=== PATIENT | male | born 1970 | race Caucasian/White ===

== ENCOUNTER 2016-05-03 13:04 | Inpatient (IN) | payer OTHER ==
[2016-05-03 17:19] VITALS: BMI 25.0
--- NOTE | 2016-05-03 18:11 | HP ---
Admission ROS [facility] Chief Complaint: I WANT TO GO TO REHAB Allergies/Adverse Reactions: Allergies Allergy/AdvReac Type Severity Reaction Status Date / Time No Known Allergies Allergy Verified 05/03/16 18:06 History of Present Illness: 46 YEARS OLD MALE WITH LONG HISTORY OF OPIATE DEPENDENCE, DENIES MEDICAL DENIES MENTAL ILLNESS LONGEST SOBRIETY IS 3 MONTHS IS ADMITTED TO REHAB Exam Limitations: No Limitations - Ebola screening Have you traveled outside of the country in the last 21 days: No Have you had contact with anyone from an Ebola affected area: No Have you been sick,other than usual withdrawal symptoms: No Do you have a fever: No - Review of Systems Constitutional: Loss of Appetite, Unexplained wgt Loss EENT: reports: No Symptoms Reported Respiratory: reports: No Symptoms reported Cardiac: reports: No Symptoms Reported GI: reports: Poor Fluid Intake : reports: No Symptoms Reported Musculoskeletal: reports: Joint Pain (KNEES ELBOWS ARTHRITIS) Integumentary: reports: No Symptoms Reported Neuro: reports: No Symptoms reported Endocrine: reports: No Symptoms Reported Hematology: reports: No Symptoms Reported Psychiatric: reports: Judgement Intact, Mood/Affect Appropiate, Orientated x3 Other Systems: Reviewed and Negative Patient History - Patient Medical History Hx Anemia: No Hx Asthma: No Hx Chronic Obstructive Pulmonary Disease (COPD): No Hx Cancer: No Hx Cardiac Disorders: No Hx Congestive Heart Failure: No Hx Hypertension: Yes Hx Hypercholesterolemia: No Hx Pacemaker: No HX Cerebrovascular Accident: No Hx Seizures: No Hx Dementia: No Hx Diabetes: No Hx Gastrointestinal Disorders: No Hx Liver Disease: No Hx Genitourinary Disorders: No Hx Sexually Transmitted Disorders: No Hx Renal Disease (ESRD): No Hx Thyroid Disease: No Hx Hepatitis C: No Hx Depression: No Hx Suicide Attempt: No Hx Bipolar Disorder: No Hx Schizophrenia: No - Patient Surgical History Past Surgical History: No - PPD History Previous Implant?: Yes Documented Results: Negative w/o proof Implanted On Prior [facility] Admission?: No PPD to be Administered?: Yes - Smoking Cessation Smoking history: Never smoked Have you smoked in the past 12 months: No Hx Chewing Tobacco Use: No Initiated information on smoking cessation: No - Substance & Tx. History Hx Alcohol Use: No Hx Substance Use: Yes Substance Use Type: Heroin Hx Substance Use Treatment: Yes - Substances Abused Heroin Route: Inhalation Frequency: Daily Amount used: 10 BAGS Age of first use: 39 Date of Last Use: 04/26/16 Family Disease History - Family Disease History Family History: Denies Admission Physical Exam [facility] - Vital Signs Vital Signs: Vital Signs - 24 hr 05/03/16 17:18 Temperature 98 F Pulse Rate 63 Respiratory 20 Rate Blood Pressure 118/67 - Physical General Appearance: Yes: No Apparent Distress, Appropriately Dressed, Thin HEENTM: Yes: Hearing grossly Normal, Normal ENT Inspection, Normocephalic, Normal Voice Respiratory: Yes: Chest Non-Tender, Lungs Clear, Normal Breath Sounds, No Respiratory Distress, No Accessory Muscle Use Neck: Yes: Supple, Trachea in good position Breast: Yes: Breasts Symetrical Cardiology: Yes: Regular Rhythm, Regular Rate, S1, S2 Abdominal: Yes: Non Tender, Soft Genitourinary: Yes: Within Normal Limits Back: Yes: Normal Inspection Musculoskeletal: Yes: full range of Motion, Gait Steady, Back pain Extremities: Yes: Normal Inspection, Normal Range of Motion, Non-Tender Neurological: Yes: Fully Oriented, Alert, Motor Strength 5/5, Normal Mood/Affect , Normal Response Integumentary: Yes: Normal Color, Warm Lymphatic: Yes: Within Normal Limits - Diagnostic (1) Opioid dependence with withdrawal Current Visit: Yes Status: Acute (2) Hypertension Current Visit: Yes Status: Acute Qualifiers: Hypertension type: essential hypertension Qualified Code(s): I10 - Essential (primary) hypertension (3) Weight loss Current Visit: Yes Status: Acute Cleared for Admission [facility] - Detox or Rehab [facility] Level of Care: Observation Bed Claeared for Rehab Admission: Yes [facility] Breath Alcohol Content Breath Alcohol Content: 0 Urine Drug Screen - Results Drug Screen Negative: Yes
[2016-05-03] MEDS ORDERED: MAGNESIUM HYDROX 2400MG/30ML ORAL SUSPENSION 30 ML CUP PO PRN (18:13)
[2016-05-03] MEDS ORDERED: diphenhydrAMINE HCL 50 MG CAPSULE PO PRN (18:13)
[2016-05-03] MEDS ORDERED: guaiFENesin/D-METHORPHAN HB 10 ML UNIT-DOSE CUPS PO PRN (18:13)
[2016-05-03] MEDS ORDERED: ACETAMINOPHEN 325 MG TABLET (FP) PO PRN (18:13)
[2016-05-03] MEDS ORDERED: IBUPROFEN 400 MG TABLET (FP) PO PRN (18:13)
[2016-05-03] MEDS ORDERED: hydrOXYzine PAMOATE 50 MG CAPSULE (FP) PO PRN (18:13)
[2016-05-03] MEDS ORDERED: MAGNESIUM CITRATE 300 ML BOTTLE PO PRN (18:13)
[2016-05-03] MEDS ORDERED: P-EPHED 60MG/TRIPROLIDI 2.5MG TABLET PO PRN (18:13)
[2016-05-03] MEDS ORDERED: MENTHOL/PHENOL 1 EACH UD MM PRN (18:13)
[2016-05-03] MEDS ORDERED: LOPERAMIDE HCL 2 MG CAPSULE PO PRN (18:13)
[2016-05-03] MEDS ORDERED: MAG HYDROX/AL HYDROX/SIMETH 30 ML UNIT-DOSE CUP PO PRN (18:13)
[2016-05-03] MEDS ORDERED: TUBERCULIN PPD 5 TU/0.1ML VIAL ID ONE (19:34)
[2016-05-03] MEDS: THIAMINE HCL 100 MG TABLET (FP) PO SCH (21:03)
--- NOTE | 2016-05-04 06:49 | HP ---
Psychiatrist Admission - Data Date of interview: 05/04/16 Admission source: [facility] Identifying data: This is the first [facility] dmission for this 46 years old single male, father of a 13 years old daughter, barlow by trade, domiciled sharing an apartment with older brother Medical History: Significant for history of HTN Psychiatric History: Patient denied any psychiatric history upon admission with the nursing unit; however, he now reports that his first psychiatric contact was at age 13 for aggressive behavior and inattententiveness in class. He claims he was hearing voices at the time and may have been prescribed Seroquel following a possible diagnosis of schizophrenia. He reports he stopped taking Seroquel at age 19 because he did not like the way it made him feel and he stopped hearing voices thereafter. He denies psychiatric hospitalization and suicidal thoughts. Physical/Sexual Abuse/Trauma History: Denies history of physical, sexual abuse as well as DV relationship Additional Comment: Reports history of 3-5 previous arrests including 2 felony convictions. Denies being on probation/parole at present Vital Signs: Vital Signs - 24 hr 05/03/16 05/04/16 05/04/16 17:18 00:30 03:30 Temperature 98 F Pulse Rate 63 Respiratory 20 18 18 Rate Blood Pressure 118/67 Allergies/Adverse Reactions: Allergies Allergy/AdvReac Type Severity Reaction Status Date / Time No Known Allergies Allergy Verified 05/03/16 18:06 Date of last physical exam: 05/03/16 Concur with the findings of this exam: Yes - Substance Abuse/Tx History Hx Alcohol Use: No Hx Substance Use: Yes Substance Use Type: Alcohol (Started drinking at age 43, consumes liquor 2 pints on weekend. last drink on 04/26/16), Heroin (Started usingheroin at age 39 , consumes 10 bags daily. Last used on 04/26/16) Hx Substance Use Treatment: Yes (2 previous inpt detox both @ [facility]. First inpt rehab) - Admission Criteria Previous failed treatment: No Poor recovery environment: Yes Comorbidities: Yes Lacks judgement: Yes Mental Status Exam - Mental Status Exam Alert and Oriented to: Time, Place, Person Cognitive Function: Fair Patient Appearance: Well Groomed (wearing a beige) Mood: Anxious (mildly) Affect: Appropriate Patient Behavior: Cooperative Speech Pattern: Clear Voice Loudness: Normal Thought Process: Intact Thought Disorder: Not Present Hallucinations: Denies Suicidal Ideation: Denies Homicidal Ideation: Denies Insight/Judgement: Fair Sleep: Poorly Appetite: Poor Muscle strength/Tone: Normal Gait/Station: Normal Psychiatric Findings - Problem List ([place] 1, 2,3) (1) Opioid dependence with withdrawal Current Visit: Yes Status: Acute (2) Alcohol abuse Current Visit: Yes Status: Acute (3) Substance-induced sleep disorder Current Visit: Yes Status: Acute (4) HTN (hypertension) Current Visit: Yes Status: Acute - Initial Treatment Plan Initial Treatment Plan: 1) Start Trazadone 100 mg po HS for insomnia. Benefits vs Risks of med discussed with patient and he agreed to try it. 2) Monitor progress
[2016-05-04 10:06] LABS: MCH 26.9 pg (25.7-33.7); MEAN CELL VOLUME 81.4 fl (80-96); MEAN PLT VOLUME 10.3 fl (7.5-11.1); PLATELET COUNT 209 K/MM3 (134-434); RDW 13.6 % (11.9-15.9); WHITE BLOOD COUNT 6.4 K/mm3 (4.0-10.0)
[2016-05-04] MEDS: PRENATAL VITAMINS W/ FOLIC ACID TABLET (FP) PO SCH (10:09)
[2016-05-04] MEDS: amLODIPine BESYLATE 10 MG TABLET (FP) PO SCH (10:09)
[2016-05-04 10:15] LABS: URINE APPEARANCE CLEAR; URINE BILIRUBIN NEGATIVE (NEGATIVE); URINE BLOOD NEGATIVE (NEGATIVE); URINE COLOR YELLOW; URINE GLUCOSE (UA) NEGATIVE (NEGATIVE); URINE KETONE NEGATIVE (NEGATIVE); URINE LEUK ESTERASE NEGATIVE (NEGATIVE); URINE NITRITE NEGATIVE (NEGATIVE); URINE UROBILINOGEN NEGATIVE E.U./dl (0.2-1.0)
[2016-05-04 10:25] LABS: URINE PROTEIN 1+ (NEGATIVE)
[2016-05-04 10:40] LABS: URINE MUCUS RARE; URINE RBC 6 /hpf (0-3); URINE WBC 12 /hpf (3-5)
[2016-05-04 10:47] LABS: HIV 1 & 2 AB NEGATIVE; HIV 1 AGp24 NEGATIVE
[2016-05-04 11:30] LABS: ALBUMIN 4.1 g/dl (3.4-5.0); ALK PHOS 113 U/L (45-117); ANION GAP 10 (8-16); BILIRUBIN,TOTAL 0.3 mg/dL (0.2-1.0); CALCIUM 9.5 mg/dL (8.5-10.1); CO2 28 mmol/L (21-32); GLUCOSE,RANDOM 177 mg/dL (74-106); SGOT/AST 17 U/L (15-37); SGPT/ALT 30 U/L (12-78); TOT PROT 7.6 g/dl (6.4-8.2)
--- NOTE | 2016-05-04 12:49 | EKG ---
Test Reason : Blood Pressure : / mmHG Vent. Rate : 066 BPM Atrial Rate : 066 BPM P-R Int : 160 ms QRS Dur : 082 ms QT Int : 398 ms P-R-T Axes : 070 033 -06 degrees QTc Int : 417 ms NORMAL SINUS RHYTHM POSSIBLE LEFT ATRIAL ENLARGEMENT T WAVE ABNORMALITY, CONSIDER INFERIOR ISCHEMIA ABNORMAL ECG NO PREVIOUS ECGS AVAILABLE Confirmed by DENIS MAIER MD ([id number]) on 05/04/2016 12:48:43 PM Referred By: Confirmed By:DENIS MAIER MD
[2016-05-04] MEDS: traZODone HCL 100 MG TABLET (FP) PO SCH (21:40)
[2016-05-04] MEDS: GABAPENTIN 100 MG CAPSULE (FP) PO SCH (21:40)
[2016-05-04] MEDS: THIAMINE HCL 100 MG TABLET (FP) PO SCH (21:40)
[2016-05-05] MEDS: GABAPENTIN 100 MG CAPSULE (FP) PO SCH ×2 (09:41→21:36)
[2016-05-05] MEDS: PRENATAL VITAMINS W/ FOLIC ACID TABLET (FP) PO SCH (09:41)
[2016-05-05] MEDS: amLODIPine BESYLATE 10 MG TABLET (FP) PO SCH (09:41)
[2016-05-05] MEDS: THIAMINE HCL 100 MG TABLET (FP) PO SCH (21:36)
[2016-05-05] MEDS: traZODone HCL 100 MG TABLET (FP) PO SCH (21:36)
[2016-05-06] MEDS: PRENATAL VITAMINS W/ FOLIC ACID TABLET (FP) PO SCH (09:41)
[2016-05-06] MEDS: amLODIPine BESYLATE 10 MG TABLET (FP) PO SCH (09:41)
[2016-05-06] MEDS: GABAPENTIN 100 MG CAPSULE (FP) PO SCH ×2 (09:41→21:44)
[2016-05-06] MEDS: THIAMINE HCL 100 MG TABLET (FP) PO SCH (21:44)
[2016-05-06] MEDS: traZODone HCL 100 MG TABLET (FP) PO SCH (21:44)
[2016-05-07] MEDS: amLODIPine BESYLATE 10 MG TABLET (FP) PO SCH (09:38)
[2016-05-07] MEDS: PRENATAL VITAMINS W/ FOLIC ACID TABLET (FP) PO SCH (09:38)
[2016-05-07] MEDS: GABAPENTIN 100 MG CAPSULE (FP) PO SCH ×2 (09:38→21:57)
[2016-05-07] MEDS: THIAMINE HCL 100 MG TABLET (FP) PO SCH (21:57)
[2016-05-07] MEDS: traZODone HCL 100 MG TABLET (FP) PO SCH (21:57)
[2016-05-08] MEDS: PRENATAL VITAMINS W/ FOLIC ACID TABLET (FP) PO SCH (09:43)
[2016-05-08] MEDS: amLODIPine BESYLATE 10 MG TABLET (FP) PO SCH (09:44)
[2016-05-08] MEDS: GABAPENTIN 100 MG CAPSULE (FP) PO SCH ×2 (09:44→21:41)
[2016-05-08] MEDS: THIAMINE HCL 100 MG TABLET (FP) PO SCH (21:41)
[2016-05-08] MEDS: traZODone HCL 100 MG TABLET (FP) PO SCH (21:42)
[2016-05-09] MEDS: PRENATAL VITAMINS W/ FOLIC ACID TABLET (FP) PO SCH (09:31)
[2016-05-09] MEDS: amLODIPine BESYLATE 10 MG TABLET (FP) PO SCH (09:31)
[2016-05-09] MEDS: GABAPENTIN 100 MG CAPSULE (FP) PO SCH ×2 (09:31→21:19)
[2016-05-09] MEDS: traZODone HCL 100 MG TABLET (FP) PO SCH (21:19)
[2016-05-09] MEDS: THIAMINE HCL 100 MG TABLET (FP) PO SCH (21:19)
[2016-05-10 07:33] VITALS: TEMP 97.8
[2016-05-10] MEDS: PRENATAL VITAMINS W/ FOLIC ACID TABLET (FP) PO SCH (09:41)
[2016-05-10] MEDS: GABAPENTIN 100 MG CAPSULE (FP) PO SCH (09:41)
[2016-05-10 10:11] VITALS: BP 127/73; PULSE 79
[2016-05-10] MEDS: amLODIPine BESYLATE 10 MG TABLET (FP) PO SCH (10:31)
--- NOTE | 2016-05-10 23:27 | PN ---
S Progress Note Note: received nurse call patient smoke cigarette for the safety of the rehab community patient has been escorted out the unit
== END 2016-05-10 21:35 | disposition home or self-care (01) | DRG 895 ==
LOC: YASAS 13:04 → Y3W 17:53
PROVIDERS: ADMIT Psychiatry & Neurology Psychiatry; ATTEND Psychiatry & Neurology Psychiatry
PROC: HZ42ZZZ Group Counseling for Substance Abuse Treatment, Cognitive-Behavioral (ICD-10-PCS; principal; 2016-05-10)
DX: F11.23 Opioid dependence with withdrawal (principal); F19.282 Other psychoactive substance dependence with psychoactive substance-induced sleep disorder; F10.10 Alcohol abuse, uncomplicated; I10 Essential (primary) hypertension; R63.4 Abnormal weight loss; Z68.25 Body mass index [BMI] 25.0-25.9, adult
CPT/HCPCS: 36415; 80053; 81003; 81015; 85027; 86593; 87389; 93005; 93010

== ENCOUNTER 2018-02-22 12:00 | Inpatient (IN) | payer OTHER ==
[2018-02-22 13:39] VITALS: BMI 24.4
--- NOTE | 2018-02-22 17:45 | HP ---
COWS - Scale Resting Pulse: 0= [place] 80 or Below Sweatin= Beads of Sweat on Face Restless Observation: 3= Extraneous Movement Pupil Size: 2= Moderately Dilated (5 mm) Bone or Joint Aches: 1= Mild Discomfort Runny Nose/ Eye Tearin= Constantly Teary/Runny GI Upset > 30mins: 2= Nausea/Diarrhea Tremor Observation: 4= Gross Tremor/Twitching Yawning Observation: 0= None Anxiety or Irritability: 1=Feels Anxious/Irritable Goose Flesh Skin: 0=Smooth Skin COWS Score: 20 CIWA Score - Admission Criteria [facility] Guidelines: Admission for Medically Managed Detox: Requires at least one of the followin. CIWA greater than 12 2. Seizures within the past 24 hours 3. Delirium tremens within the past 24 hours 4. Hallucinations within the past 24 hours 5. Acute intervention needed for co occurring medical disorder 6. Acute intervention needed for co occurring psychiatric disorder 7. Severe withdrawal that cannot be handled at a lower level of care (continued vomiting, continued diarrhea, abnormal vital signs) requiring intravenous medication and/or fluids 8. Admission ROS [facility] Chief Complaint: Here for heroin withdrawal. Allergies/Adverse Reactions: Allergies Allergy/AdvReac Type Severity Reaction Status Date / Time No Known Allergies Allergy Verified 02/22/18 15:06 History of Present Illness: Heroin use began at age 36. Denies seizures, blackouts, overdose. Hx: HTN. Denies other significant PMH/PSH. Exam Limitations: No Limitations - Ebola screening Have you traveled outside of the country in the last 21 days: No Have you had contact with anyone from an Ebola affected area: No Have you been sick,other than usual withdrawal symptoms: No Do you have a fever: No - Review of Systems Constitutional: Diaphoresis, Changes in sleep (Difficulty falling asleep) EENT: reports: Nose Congestion Respiratory: reports: No Symptoms reported Cardiac: reports: No Symptoms Reported GI: reports: No Symptoms Reported, Diarrhea (only r/t withdrawal), Nausea (only r/t withdrawal) : reports: No Symptoms Reported Musculoskeletal: reports: Back Pain (only r/t withdrawal) Integumentary: reports: No Symptoms Reported Neuro: reports: Tremors (only r/t withdrawal) Endocrine: reports: No Symptoms Reported Hematology: reports: No Symptoms Reported Psychiatric: reports: Judgement Intact, Orientated x3 (Missed by 1 charley), Agitated, Anxious, Depressed (Denies thoughts of harming self or others.) Patient History - Patient Medical History Hx Anemia: No Hx Asthma: No Hx Chronic Obstructive Pulmonary Disease (COPD): No Hx Cancer: No Hx Cardiac Disorders: No Hx Congestive Heart Failure: No Hx Hypertension: Yes (On medications.) Hx Hypercholesterolemia: No Hx Pacemaker: No HX Cerebrovascular Accident: No Hx Seizures: No Hx Dementia: No Hx Diabetes: No Hx Gastrointestinal Disorders: No Hx Liver Disease: No Hx Genitourinary Disorders: No Hx Sexually Transmitted Disorders: No Hx Renal Disease (ESRD): No Hx Thyroid Disease: No Hx Human Immunodeficiency Virus (HIV): No (2015) Hx Hepatitis C: No Hx Depression: No Hx Suicide Attempt: No Hx Bipolar Disorder: No Hx Schizophrenia: No - Patient Surgical History Past Surgical History: No Hx Neurologic Surgery: No Hx Cataract Extraction: No Hx Cardiac Surgery: No Hx Lung Surgery: No Hx Breast Surgery: No Hx Breast Biopsy: No Hx Abdominal Surgery: No Hx Appendectomy: No Hx Cholecystectomy: No Hx Genitourinary Surgery: No Hx Section: No Hx Orthopedic Surgery: No Anesthesia Reaction: No - PPD History Previous Implant?: Yes Documented Results: Negative w/proof Implanted On Prior R Admission?: Yes Date: 05/05/16 PPD to be Administered?: Yes - Smoking Cessation Smoking history: Never smoked Have you smoked in the past 12 months: No Cigars Per Day: 0 Hx Chewing Tobacco Use: No - Substance & Tx. History Hx Alcohol Use: No Hx Substance Use: Yes Substance Use Type: Heroin Hx Substance Use Treatment: Yes (detox, ) - Substances Abused Heroin Route: Inhalation Frequency: Daily Amount used: 10 bags Age of first use: 36 Date of Last Use: 02/21/18 Admission Physical Exam [facility] - Vital Signs Vital Signs: Vital Signs - 24 hr 02/22/18 13:32 Temperature 98.2 F Pulse Rate 56 L Respiratory 20 Rate Blood Pressure 132/76 - Physical General Appearance: Yes: Moderate Distress, Tremorous, Sweating, Anxious HEENTM: Yes: EOMI, Hearing grossly Normal, CORRY (5 mm) Respiratory: Yes: Lungs Clear, Normal Breath Sounds, No Respiratory Distress Neck: Yes: No masses,lesions,Nodules, Supple Breast: Yes: Breast Exam Deferred Cardiology: Yes: Regular Rhythm, Regular Rate, S1, S2 Abdominal: Yes: Non Tender, Soft, Increased Bowel Sounds Genitourinary: Yes: Within Normal Limits Back: Yes: Normal Inspection Musculoskeletal: Yes: full range of Motion, Gait Steady Extremities: Yes: Normal Capillary Refill, Normal Range of Motion, Tremors Neurological: Yes: wire tester II-XII NML intact, Fully Oriented, Alert, Motor Strength 5/5, Normal Mood/Affect Integumentary: Yes: Normal Color, Dry, Warm Lymphatic: Yes: Within Normal Limits - Diagnostic (1) HTN (hypertension) Current Visit: Yes Status: Chronic Qualifiers: Hypertension type: essential hypertension Qualified Code(s): I10 - Essential (primary) hypertension (2) Opioid dependence with withdrawal Current Visit: Yes Status: Acute Cleared for Admission [facility] - Detox or Rehab [facility] Level of Care: Medically Managed Detox Regimen/Protocol: Methadone [facility] Breath Alcohol Content Breath Alcohol Content: 0 Urine Drug Screen - Results Drug Screen Negative: No Urine Drug Screen Results: OPI-Opiates, BAR-Barbiturates, FEN-Fentanyl
[2018-02-22] MEDS ORDERED: hydrOXYzine PAMOATE 50 MG CAPSULE (FP) PO PRN (18:04)
[2018-02-22] MEDS ORDERED: MAG HYDROX/AL HYDROX/SIMETH 30 ML UNIT-DOSE CUP PO PRN (18:04)
[2018-02-22] MEDS ORDERED: diazePAM 5 MG TABLET PO PRN (18:04)
[2018-02-22] MEDS ORDERED: LOPERAMIDE HCL 2 MG CAPSULE PO PRN (18:04)
[2018-02-22] MEDS ORDERED: MAGNESIUM HYDROX 2400MG/30ML ORAL SUSPENSION 30 ML CUP PO PRN (18:04)
[2018-02-22] MEDS ORDERED: MAGNESIUM CITRATE 300 ML BOTTLE PO PRN (18:04)
[2018-02-22] MEDS ORDERED: MENTHOL/PHENOL 1 EACH UD MM PRN (18:04)
[2018-02-22] MEDS ORDERED: ACETAMINOPHEN 325 MG TABLET (FP) PO PRN (18:04)
[2018-02-22] MEDS ORDERED: diazePAM 5 MG TABLET PO ONE (18:30)
[2018-02-22] MEDS ORDERED: METHADONE HCL 10 MG TABLET (FOR DETOX USE ONLY) PO ONE ×2 (18:30→23:00)
[2018-02-22] MEDS: THIAMINE HCL 100 MG TABLET (FP) PO SCH (22:41)
[2018-02-22] MEDS: diazePAM 5 MG TABLET PO SCH (22:41)
[2018-02-23 02:55] LABS: URINE APPEARANCE SLCLOUDY; URINE BILIRUBIN NEGATIVE (<2.0 mg/dL); URINE COLOR DKYELLOW; URINE GLUCOSE (UA) NEGATIVE (NEGATIVE); URINE KETONE NEGATIVE (NEGATIVE); URINE LEUK ESTERASE 1+ (NEGATIVE); URINE NITRITE NEGATIVE (NEGATIVE); URINE PROTEIN NEGATIVE (NEGATIVE)
[2018-02-23 03:12] LABS: EPI CELLS FEW /HPF (FEW); URINE BACTERIA RARE /hpf (NONE SEEN); URINE HYALINE CAST 1 /lpf; URINE MUCUS MANY
[2018-02-23] MEDS: diazePAM 5 MG TABLET PO SCH ×3 (05:49→22:33)
[2018-02-23] MEDS ORDERED: METHADONE HCL 10 MG TABLET (FOR DETOX USE ONLY) PO SCH (10:00)
[2018-02-23] MEDS: amLODIPine BESYLATE 10 MG TABLET (FP) PO SCH (10:14)
[2018-02-23] MEDS: PRENATAL VITAMINS W/ FOLIC ACID TABLET (FP) PO SCH (10:14)
[2018-02-23 10:25] LABS: HEMATOCRIT 39.5 % (35.4-49); HEMOGLOBIN 13.2 GM/dL (11.7-16.9); MCH 26.8 pg (25.7-33.7); MCHC 33.5 g/dl (32.0-35.9); MEAN CELL VOLUME 79.9 fl (80-96); MEAN PLT VOLUME 10.6 fl (7.5-11.1); PLATELET COUNT 128 K/MM3 (134-434); RBC 4.94 M/mm3 (4.00-5.60); RDW 13.7 % (11.9-15.9); WHITE BLOOD COUNT 4.9 K/mm3 (4.0-10.0)
[2018-02-23 10:42] LABS: ALBUMIN 3.8 g/dl (3.4-5.0); ALK PHOS 73 U/L (45-117); ANION GAP 8 MMOL/L (8-16); BILIRUBIN,TOTAL 0.4 mg/dL (0.2-1); BLOOD UREA NITROGEN 12 mg/dL (7-18); CALCIUM 8.7 mg/dL (8.5-10.1); CHLORIDE 103 mmol/L (98-107); CO2 31 mmol/L (21-32); CREATININE 0.6 mg/dL (0.55-1.3); GLUCOSE,RANDOM 83 mg/dL (74-106); POTASSIUM 3.6 mmol/L (3.5-5.1); SGOT/AST 14 U/L (15-37); SGPT/ALT 16 U/L (13-61); SODIUM 141 mmol/L (136-145); TOT PROT 6.8 g/dl (6.4-8.2)
--- NOTE | 2018-02-23 10:53 | PN ---
[facility] COWS - Scale Resting Pulse: 0= [place] 80 or Below Sweatin=Flushed/Facial Moisture Restless Observation: 0= Sits Still Pupil Size: 0= Normal to Room Light Bone or Joint Aches: 2= Severe Diffuse Aches Runny Nose/ Eye Tearin= Nasal Congestion GI Upset > 30mins: 2= Nausea/Diarrhea Tremor Observation of Outstretched Hands: 2= Slight Tremor Visible Yawning Observation: 2= >3x During Session Anxiety or Irritability: 2=Irritable/Anxious Goose Flesh Skin: 3=Piloerection COWS Score: 16 [facility] Progress Note (SOAP) Subjective: sweats shakes interrupted sleep body aches nausea chills irritable Objective: 02/23/18 10:56 Vital Signs Temperature 98.2 F 02/23/18 09:32 Pulse Rate 51 L 02/23/18 09:32 Respiratory Rate 18 02/23/18 09:32 Blood Pressure 136/69 02/23/18 09:32 O2 Sat by Pulse Oximetry (%) Laboratory Tests 02/23/18 02/23/18 02/23/18 00:00 07:00 07:00 WBC 4.9 RBC 4.94 Hgb 13.2 Hct 39.5 MCV 79.9 L MCH 26.8 MCHC 33.5 RDW 13.7 Plt Count 128 L D MPV 10.6 Sodium 141 Potassium 3.6 Chloride 103 Carbon Dioxide 31 Anion Gap 8 BUN 12 Creatinine 0.6 Creat Clearance w eGFR > 60 Random Glucose 83 Calcium 8.7 Total Bilirubin 0.4 AST 14 L ALT 16 Alkaline Phosphatase 73 Total Protein 6.8 Albumin 3.8 Urine Color Dkyellow Urine Appearance Slcloudy Urine pH 5.0 Ur Specific [place] 1.030 Urine Protein Negative Urine Glucose (UA) Negative Urine Ketones Negative Urine Blood Negative Urine Nitrite Negative Urine Bilirubin Negative Urine Urobilinogen 2.0 Ur Leukocyte Esterase 1+ H Urine WBC (Auto) 53 Urine RBC (Auto) 2 Ur Epithelial Cells Few Urine Bacteria Rare Hyaline Casts 1 Urine Mucus Many repeat u/a aaox3 lying in bed no acute distress Assessment: 02/23/18 10:56 withdrawal sx Plan: continue detox increase fluids repeat u/a
--- NOTE | 2018-02-23 11:55 | EKG ---
Test Reason : Blood Pressure : / mmHG Vent. Rate : 058 BPM Atrial Rate : 058 BPM P-R Int : 178 ms QRS Dur : 080 ms QT Int : 424 ms P-R-T Axes : 057 015 013 degrees QTc Int : 416 ms SINUS BRADYCARDIA NONSPECIFIC T WAVE ABNORMALITY ABNORMAL ECG WHEN COMPARED WITH ECG OF 03-MAY-2016 21:14, T WAVE INVERSION NOW EVIDENT IN ANTERIOR LEADS Confirmed by DARELL MADERA, WESLEY ([id number]) on 02/23/2018 11:55:30 AM Referred By: Confirmed By:WESLEY LOZOYA MD
[2018-02-23] MEDS: MELATONIN 5 MG TABLETS PO PRN (22:33)
[2018-02-23] MEDS: THIAMINE HCL 100 MG TABLET (FP) PO SCH (22:33)
[2018-02-24] MEDS: IBUPROFEN 400 MG TABLET (FP) PO PRN ×2 (01:19→10:22)
[2018-02-24] MEDS: METHADONE HCL 5 MG TABLET (FOR DETOX USE ONLY) PO SCH (10:20)
[2018-02-24] MEDS: diazePAM 5 MG TABLET PO SCH ×2 (10:20→22:36)
[2018-02-24] MEDS: amLODIPine BESYLATE 10 MG TABLET (FP) PO SCH (10:20)
[2018-02-24] MEDS: PRENATAL VITAMINS W/ FOLIC ACID TABLET (FP) PO SCH (10:21)
--- NOTE | 2018-02-24 11:21 | PN ---
BHS COWS - Scale Resting Pulse: 0= [place] 80 or Below Sweatin=Flushed/Facial Moisture Restless Observation: 1= Difficult to Sit Still Pupil Size: 0= Normal to Room Light Bone or Joint Aches: 1= Mild Discomfort Runny Nose/ Eye Tearin= None GI Upset > 30mins: 0= None Tremor Observation of Outstretched Hands: 2= Slight Tremor Visible Yawning Observation: 1= 1-2x During Session Anxiety or Irritability: 2=Irritable/Anxious Goose Flesh Skin: 3=Piloerection COWS Score: 12 S Progress Note (SOAP) Subjective: sweats interrupted sleep irritable agitation Objective: 02/24/18 11:28 Vital Signs Temperature 97.7 F 02/24/18 09:36 Pulse Rate 61 02/24/18 09:36 Respiratory Rate 16 02/24/18 09:36 Blood Pressure 143/91 02/24/18 09:36 O2 Sat by Pulse Oximetry (%) Laboratory Tests 02/23/18 02/23/18 02/23/18 00:00 07:00 07:00 WBC 4.9 RBC 4.94 Hgb 13.2 Hct 39.5 MCV 79.9 L MCH 26.8 MCHC 33.5 RDW 13.7 Plt Count 128 L D MPV 10.6 Sodium 141 Potassium 3.6 Chloride 103 Carbon Dioxide 31 Anion Gap 8 BUN 12 Creatinine 0.6 Creat Clearance w eGFR > 60 Random Glucose 83 Calcium 8.7 Total Bilirubin 0.4 AST 14 L ALT 16 Alkaline Phosphatase 73 Total Protein 6.8 Albumin 3.8 Urine Color Dkyellow Urine Appearance Slcloudy Urine pH 5.0 Ur Specific [place] 1.030 Urine Protein Negative Urine Glucose (UA) Negative Urine Ketones Negative Urine Blood Negative Urine Nitrite Negative Urine Bilirubin Negative Urine Urobilinogen 2.0 Ur Leukocyte Esterase 1+ H Urine WBC (Auto) 53 Urine RBC (Auto) 2 Ur Epithelial Cells Few Urine Bacteria Rare Hyaline Casts 1 Urine Mucus Many RPR Titer HIV 1&2 Antibody Screen HIV P24 Antigen 02/23/18 02/23/18 07:00 07:00 WBC RBC Hgb Hct MCV MCH MCHC RDW Plt Count MPV Sodium Potassium Chloride Carbon Dioxide Anion Gap BUN Creatinine Creat Clearance w eGFR Random Glucose Calcium Total Bilirubin AST ALT Alkaline Phosphatase Total Protein Albumin Urine Color Urine Appearance Urine pH Ur Specific [place] Urine Protein Urine Glucose (UA) Urine Ketones Urine Blood Urine Nitrite Urine Bilirubin Urine Urobilinogen Ur Leukocyte Esterase Urine WBC (Auto) Urine RBC (Auto) Ur Epithelial Cells Urine Bacteria Hyaline Casts Urine Mucus RPR Titer Nonreactive HIV 1&2 Antibody Screen Negative HIV P24 Antigen Negative aaox3 ambulating no acute distress Assessment: 02/24/18 11:30 withdrawal sx Plan: continue detox increase fluids ensure plus 120ml po bid
[2018-02-24] MEDS: THIAMINE HCL 100 MG TABLET (FP) PO SCH (22:36)
[2018-02-25] MEDS: PRENATAL VITAMINS W/ FOLIC ACID TABLET (FP) PO SCH (10:25)
[2018-02-25] MEDS: METHADONE HCL 5 MG TABLET (FOR DETOX USE ONLY) PO SCH (10:25)
[2018-02-25] MEDS: diazePAM 5 MG TABLET PO SCH ×2 (10:26→22:23)
[2018-02-25] MEDS: amLODIPine BESYLATE 10 MG TABLET (FP) PO SCH (10:27)
[2018-02-25] MEDS: IBUPROFEN 400 MG TABLET (FP) PO PRN ×2 (10:27→22:24)
[2018-02-25 10:41] LABS: URINE APPEARANCE SLCLOUDY; URINE BILIRUBIN NEGATIVE (<2.0 mg/dL); URINE COLOR YELLOW; URINE GLUCOSE (UA) NEGATIVE (NEGATIVE); URINE KETONE NEGATIVE (NEGATIVE); URINE LEUK ESTERASE 2+ (NEGATIVE); URINE NITRITE NEGATIVE (NEGATIVE); URINE PROTEIN NEGATIVE (NEGATIVE)
[2018-02-25 10:44] LABS: EPI CELLS FEW /HPF (FEW); URINE BACTERIA RARE /hpf (NONE SEEN); URINE MUCUS MODERATE
--- NOTE | 2018-02-25 12:02 | PN ---
S Progress Note (SOAP) Subjective: Interrupted sleep, anxiety and fatigue Objective: 02/25/18 12:01 Vital Signs 02/25/18 02/25/18 06:00 09:36 Temperature 97.3 F L 97.6 F Pulse Rate 47 L 76 Respiratory 18 18 Rate Blood Pressure 150/85 125/84 Laboratory Last Values WBC 4.9 K/mm3 (4.0-10.0) 02/23/18 07:00 RBC 4.94 M/mm3 (4.00-5.60) 02/23/18 07:00 Hgb 13.2 GM/dL (11.7-16.9) 02/23/18 07:00 Hct 39.5 % (35.4-49) 02/23/18 07:00 MCV 79.9 fl (80-96) L 02/23/18 07:00 MCH 26.8 pg (25.7-33.7) 02/23/18 07:00 MCHC 33.5 g/dl (32.0-35.9) 02/23/18 07:00 RDW 13.7 % (11.9-15.9) 02/23/18 07:00 Plt Count 128 K/MM3 (134-434) L D 02/23/18 07:00 MPV 10.6 fl (7.5-11.1) 02/23/18 07:00 Sodium 141 mmol/L (136-145) 02/23/18 07:00 Potassium 3.6 mmol/L (3.5-5.1) 02/23/18 07:00 Chloride 103 mmol/L (98-107) 02/23/18 07:00 Carbon Dioxide 31 mmol/L (21-32) 02/23/18 07:00 Anion Gap 8 MMOL/L (8-16) 02/23/18 07:00 BUN 12 mg/dL (7-18) 02/23/18 07:00 Creatinine 0.6 mg/dL (0.55-1.3) 02/23/18 07:00 Creat Clearance w eGFR > 60 (>60) 02/23/18 07:00 Random Glucose 83 mg/dL (74-106) 02/23/18 07:00 Calcium 8.7 mg/dL (8.5-10.1) 02/23/18 07:00 Total Bilirubin 0.4 mg/dL (0.2-1) 02/23/18 07:00 AST 14 U/L (15-37) L 02/23/18 07:00 ALT 16 U/L (13-61) 02/23/18 07:00 Alkaline Phosphatase 73 U/L (45-117) 02/23/18 07:00 Total Protein 6.8 g/dl (6.4-8.2) 02/23/18 07:00 Albumin 3.8 g/dl (3.4-5.0) 02/23/18 07:00 Urine Color Yellow 02/25/18 08:10 Urine Appearance Slcloudy 02/25/18 08:10 Urine pH 7.0 (5.0-8.0) D 02/25/18 08:10 Ur Specific [place] 1.025 (1.010-1.035) 02/25/18 08:10 Urine Protein Negative (NEGATIVE) 02/25/18 08:10 Urine Glucose (UA) Negative (NEGATIVE) 02/25/18 08:10 Urine Ketones Negative (NEGATIVE) 02/25/18 08:10 Urine Blood Negative (NEGATIVE) 02/25/18 08:10 Urine Nitrite Negative (NEGATIVE) 02/25/18 08:10 Urine Bilirubin Negative (<2.0 mg/dL) 02/25/18 08:10 Urine Urobilinogen 2.0 mg/dL (0.2-1.0) 02/25/18 08:10 Ur Leukocyte Esterase 2+ (NEGATIVE) H 02/25/18 08:10 Urine WBC (Auto) 75 /hpf (3-5) 02/25/18 08:10 Urine RBC (Auto) 4 /hpf (0-3) 02/25/18 08:10 Ur Epithelial Cells Few /HPF (FEW) 02/25/18 08:10 Urine Bacteria Rare /hpf (NONE SEEN) 02/25/18 08:10 Hyaline Casts 1 /lpf 02/23/18 00:00 Urine Mucus Moderate 02/25/18 08:10 RPR Titer Nonreactive (NONREACTIVE) 02/23/18 07:00 HIV 1&2 Antibody Screen Negative 02/23/18 07:00 HIV P24 Antigen Negative 02/23/18 07:00 Labs noted Assessment: 02/25/18 12:01 Withdrawal sx Plan: Continue detox
[2018-02-25] MEDS: THIAMINE HCL 100 MG TABLET (FP) PO SCH (22:23)
[2018-02-25] MEDS: MELATONIN 5 MG TABLETS PO PRN (22:24)
[2018-02-26] MEDS ORDERED: diazePAM 5 MG TABLET PO SCH (10:00)
[2018-02-26] MEDS ORDERED: METHADONE HCL 10 MG TABLET (FOR DETOX USE ONLY) PO SCH (10:00)
[2018-02-26] MEDS: amLODIPine BESYLATE 10 MG TABLET (FP) PO SCH (10:16)
[2018-02-26] MEDS: PRENATAL VITAMINS W/ FOLIC ACID TABLET (FP) PO SCH (10:16)
[2018-02-26] MEDS: SULFAMETHOXAZOLE/TRIMETHOPRIM 800MG/160MG D.S. TABLET PO SCH ×2 (15:29→22:28)
[2018-02-26] MEDS: MELATONIN 5 MG TABLETS PO PRN (22:28)
[2018-02-26] MEDS: THIAMINE HCL 100 MG TABLET (FP) PO SCH (22:28)
[2018-02-27] MEDS ORDERED: METHADONE HCL 5 MG TABLET (FOR DETOX USE ONLY) PO SCH (06:00)
--- NOTE | 2018-02-27 08:47 | DS ---
[facility] Detox Discharge Summary Admission Date: 02/22/18 Discharge Date: 02/27/18 - History Present History: Opioid Dependence - Physical Exam Results Vital Signs: Vital Signs Temperature 97.9 F 02/27/18 06:56 Pulse Rate 55 L 02/27/18 06:56 Respiratory Rate 17 02/27/18 06:56 Blood Pressure 123/67 02/27/18 06:56 O2 Sat by Pulse Oximetry (%) - Treatment Hospital Course: Detox Protocol Followed, Detoxed Safely, Responded well, Discharged Condition Good, Rehab Referral Accepted - Medication Discharge Medications: Ambulatory Orders Amlodipine Besylate [Norvasc -] 10 mg PO DAILY #14 tablet 02/26/18 Sulfamethoxazole/Trimethoprim [Bactrim DS -] 1 each PO BID #20 tablet 02/26/18 - Diagnosis (1) Opioid dependence with withdrawal Current Visit: Yes Status: Chronic (2) HTN (hypertension) Current Visit: Yes Status: Chronic Qualifiers: Hypertension type: essential hypertension Qualified Code(s): I10 - Essential (primary) hypertension (3) Alcohol abuse Current Visit: No Status: Acute (4) Substance-induced sleep disorder Current Visit: No Status: Acute (5) Weight loss Current Visit: No Status: Acute - AMA Did Patient Leave Against Medical Advice: No (going home. )
[2018-02-27] MEDS: SULFAMETHOXAZOLE/TRIMETHOPRIM 800MG/160MG D.S. TABLET PO SCH (09:27)
[2018-02-27] MEDS: amLODIPine BESYLATE 10 MG TABLET (FP) PO SCH (09:27)
[2018-02-27] MEDS: PRENATAL VITAMINS W/ FOLIC ACID TABLET (FP) PO SCH (09:27)
[2018-02-27 09:28] VITALS: BP 102/68; PULSE 95; TEMP 98.2
== END 2018-02-27 10:13 | disposition home or self-care (01) | DRG 897 ==
LOC: YASAS 12:00 → Y6N 17:10
PROC: HZ2ZZZZ Detoxification Services for Substance Abuse Treatment (ICD-10-PCS; principal; 2018-02-22)
DX: F11.23 Opioid dependence with withdrawal (principal); F19.282 Other psychoactive substance dependence with psychoactive substance-induced sleep disorder; F10.10 Alcohol abuse, uncomplicated; I10 Essential (primary) hypertension; R63.4 Abnormal weight loss; Z68.24 Body mass index [BMI] 24.0-24.9, adult
CPT/HCPCS: 36415; 80053; 81003; 81015; 85027; 86593; 87389; 93005; 93010